=== PATIENT | male | born 1995 | race Caucasian/White ===

== ENCOUNTER 2019-05-14 08:21 | Emergency (ER) | payer SELFPAY ==
[2019-05-14 08:51] VITALS: BP 157/91
--- NOTE | 2019-05-14 11:32 | UC ---
Head Injury HPI - HPI Summary HPI Summary: 3 DAYS AGO WHILE AT WORK PATIENT JUMPED UP AND STRUCK THE TOP OF HIS HEAD ON A METAL PIPE. HE THEN FELL BACKWARDS AND STRUCK THE BACK OF HIS HEAD ON THE GROUND (GRAVEL). NO LOC. STATES HE VOMITED 2 TIMES LATER IN THE EVENING BUT NONE SINCE THEN. HE HAS HAD PERSISTENT SHARP HEADACHE AND INTERMITTENT BLURRY VISION WITH DIZZINESS. SOME NAUSEA BUT NO VOMITING. STATES HE HAS HAD SEVERAL CONCUSSIONS IN THE PAST MOST RECENTLY IN 2017. NO RESPIRATORY SYMPTOMS. - History Of Current Complaint Chief Complaint: UCHeadInjury Stated Complaint: HIT HEAD Time Seen by Provider: 05/14/19 09:12 Hx Obtained From: Patient Onset/Duration: Sudden Onset, Lasting Days, Still Present Severity Currently: Moderate Severity Initially: Moderate Pain Intensity: 8 Pain Scale Used: 0-10 Numeric Character: Sharp Aggravating Factor(s): Nothing Alleviating Factor(s): Nothing Associated Signs And Symptoms: Positive: Neck Pain, Nausea. Negative: LOC Duration Unknown, Confusion, Memory Loss, Seizure, Epistaxis, Vomiting - Allergies/Home Medications Allergies/Adverse Reactions: Allergies Allergy/AdvReac Type Severity Reaction Status Date / Time Penicillins Allergy Severe Anaphylatic Verified 05/14/19 08:46 Shock Home Medications: Home Medications FLUoxetine CAP* [Prozac CAP*] 20 mg PO DAILY 05/14/19 [History Confirmed ] PMH/Surg Hx/FS Hx/Imm Hx Psychological History: Depression - Surgical History Surgical History: Yes Surgery Procedure, Year, and Place: tonsillectomy age 10 - Family History Known Family History: Positive: Non-Contributory - Social History Alcohol Use: None Substance Use Type: None Smoking Status (MU): Never Smoked Tobacco Review of Systems All Other Systems Reviewed And Are Negative: Yes Constitutional: Positive: Negative Skin: Positive: Negative Eyes: Positive: Blurred Vision, Photophobia ENT: Positive: Negative Respiratory: Positive: Negative Cardiovascular: Positive: Negative Gastrointestinal: Positive: Nausea. Negative: Vomiting, Diarrhea Genitourinary: Positive: Negative Musculoskeletal: Positive: Myalgia - NECK Neurological/Mental Status: Positive: Headache Physical Exam Triage Information Reviewed: Yes Appearance: Well-Nourished, Pain Distress - MILD Vital Signs: Initial Vital Signs Temp 99.1 F 05/14/19 08:42 Pulse 66 04/07/20 08:42 Resp 16 05/14/19 08:42 BP 157/91 05/14/19 08:42 Pulse Ox 100 05/14/19 08:42 Vital Signs Reviewed: Yes Eyes: Positive: Conjunctiva Clear, Other: - PERRL, EOMI. Negative: Discharge ENT: Positive: Hearing grossly normal, Pharynx normal, TMs normal Neck: Positive: Supple, Nontender, No Lymphadenopathy Respiratory Exam: Normal Cardiovascular Exam: Normal Abdomen Description: Positive: Soft Musculoskeletal: Positive: ROM Intact, No Edema, Other: - TTP POSTERIOR NECK, TRAPS Neurological: Positive: Alert, Other: - CN II-XII GROSSLY INTACT BILATERALLY. RAPID ALTERNATING MOVEMENTS INTACT. NEG PRONATOR DRIFT. NEG ROMBERG. 5/5 STRENGTH. HEEL TO FOFANA INTACT BILATERALLY. TANDEM GAIT INTACT. FINGER TO NOSE SLOW BUT INTACT. Psychological: Positive: Age Appropriate Behavior Skin: Negative: Rashes Diagnostics - Radiology CT HEAD W/O CONTRAST Radiology Interpretation Completed By: Radiologist Summary of Radiographic Findings: There is no evidence of intracranial mass or hemorrhage is noted. C-SPINE XRAYS Radiology Interpretation Completed By: Radiologist Summary of Radiographic Findings: Straightening relative to normal cervical lordosis without spondylolisthesis or facet subluxation at any level. No radiographic evidence for fracture. Head Injury Course/Dx - Course Course Of Treatment: HEAD CT UNREMARKABLE. C-SPINE WITH SOME STRAIGHTENING BUT NO OTHER ACUTE ABNORMALITY. PATIENT LIKELY SUFFERING FROM ANOTHER CONCUSSION AND ACUTE CERVICAL STRAIN. HE RECENTLY MOVED TO THE [facility] SO HAS NOT ESTABLISHED WITH ANY PHYSICIANS IN [facility]. NUMBERS FOR PHYSICIAN REFERRAL CENTER [facility] PROVIDED. ADVISED PATIENT TO FOLLOW-UP WITH [facility] FOR FURTHER MANAGEMENT OF HIS CONCUSSIVE SYMPTOMS. HE MAY ALSO BENEFIT FROM NEUROLOGY. TO THE ER WITHOUT FAIL IF SX WORSEN. - Differential Dx/Diagnosis Provider Diagnosis: Concussion, Cervical strain, acute Discharge ED - Sign-Out/Discharge Documenting (check all that apply): Patient Departure All imaging exams completed and their final reports reviewed: Yes - Discharge Plan Condition: Stable Disposition: HOME Patient Education Materials: Concussion (ED) Forms: *Work Release Referrals: [facility] [Outside] - If Needed [facility] [Outside] - 1 Week Carl Ragsdale MD [Medical Doctor] - If Needed Additional Instructions: CT HEAD TODAY UNREMARKABLE. X-RAY OF THE C-SPINE SHOWS SOME STRAIGHTENING WHICH IS CONSISTENT WITH CERVICAL STRAIN BUT NO OTHER ACUTE INJURY NOTED. YOU HAVE CONCUSSED. OTC IBUPROFEN AND/OR TYLENOL NEEDED FOR DISCOMFORT. LIMIT SCREEN TIME AND AVOID ACTIVITIES THAT COULD RESULT IN ADDITIONAL HEAD INJURY. YOU NEED BOTH PHYSICAL AND COGNITIVE REST TO EXPEDITE RECOVERY. NO SPORTS FOR AT LEAST A WEEK. FOLLOW-UP IF SYMPTOMS ARE PERSISTENT AFTER 1 WEEK. CALL [facility] TO SCHEDULE A FOLLOW-UP APPOINTMENT FOR YOUR CONCUSSIVE SYMPTOMS. YOU MAY ALSO BENEFIT FROM NEUROLOGY EVALUATION IF YOUR SYMPTOMS ARE PERSISTENT. GO TO THE ER WITHOUT FAIL IF YOU DEVELOP UNEQUAL PUPILS, VISUAL DISTURBANCE, GAIT INSTABILITY, SPEECH DIFFICULTY, NAUSEA/VOMITING, WORSENING HEADACHE, DIZZINESS, CONFUSION, WEAKNESS OR ANY OTHER CONCERNING SYMPTOMS. - Billing Disposition and Condition Condition: STABLE Disposition: Home
== END 2019-05-14 10:42 | disposition home or self-care (01) ==
LOC: UCEAST 08:21
DX: S06.0X0A Concussion without loss of consciousness, initial encounter (principal); S16.1XXA Strain of muscle, fascia and tendon at neck level, initial encounter; W18.00XA Striking against unspecified object with subsequent fall, initial encounter; Y92.9 Unspecified place or not applicable; Y99.0 Civilian activity done for income or pay; R11.0 Nausea; F32.9 Major depressive disorder, single episode, unspecified; Z79.899 Other long term (current) drug therapy; Z88.0 Allergy status to penicillin
CPT/HCPCS: 70450; 72050; 99201; G0463